=== PATIENT | female | born 1960 | race Caucasian/White ===

== ENCOUNTER 2021-05-15 18:14 | Emergency (ER) | payer OTHER ==
[~2021-05-15] VITALS: Ht 149.9 cm; Wt 64.0 kg
[2021-05-15] MEDS ORDERED: SERTRALINE 25 MG. (18:43)
[2021-05-15] MEDS ORDERED: DRAMAMINE LESS25 MG (18:44)
[2021-05-15] MEDS ORDERED: ACID REDUCER20 M1 (18:44)
[2021-05-15] MEDS ORDERED: ATIVAN0.5 M1 (18:44)
[2021-05-15] MEDS ORDERED: VALACYCLOVIR500 MG (18:45)
[2021-05-15] MEDS ORDERED: ALENDRONATE SOD70 MG (18:45)
[2021-05-15] MEDS ORDERED: PRAVASTATIN SOD20 MG (18:46)
[2021-05-15] MEDS ORDERED: MONTELUKAST 10 MG (18:47)
[2021-05-15] MEDS ORDERED: ALLER-TEC10 MG (18:49)
[2021-05-15] MEDS ORDERED: BRIMONIDINE (18:51)
[2021-05-15] MEDS ORDERED: NORFLEX100MG PO (20:01)
== END 2021-05-15 20:32 | disposition home or self-care (01) ==
LOC: ER 18:14
DX: M54.89 Other dorsalgia (principal); R07.89 Other chest pain

== ENCOUNTER 2021-08-04 13:44 | Emergency (ER) | payer OTHER ==
[~2021-08-04] VITALS: Ht 149.9 cm; Wt 64.0 kg
[~2021-08-04 13:44] MED LIST: ACID REDUCER20 M1; ALENDRONATE SOD70 MG; ALLER-TEC10 MG; ATIVAN0.5 M1; BRIMONIDINE; DRAMAMINE LESS25 MG; MONTELUKAST 10 MG; NORFLEX100MG PO; PRAVASTATIN SOD20 MG; SERTRALINE 25 MG.; VALACYCLOVIR500 MG
== END 2021-08-04 19:22 | disposition home or self-care (01) ==
LOC: ER 13:44
DX: S00.83XA Contusion of other part of head, initial encounter (principal); W18.39XA Other fall on same level, initial encounter; Y93.89 Activity, other specified; Y92.89 Other specified places as the place of occurrence of the external cause; H81.09 Meniere's disease, unspecified ear; Z88.2 Allergy status to sulfonamides; E11.9 Type 2 diabetes mellitus without complications; Z95.0 Presence of cardiac pacemaker